=== PATIENT | female | born 1945 | race Caucasian/White ===

== ENCOUNTER → 2016-06-22 | Outpatient (CLI) | payer OTHER, BC ==
--- NOTE | 2016-06-22 14:50 | DX ---
Left Shoulder , 3 Views History: Pain without trauma. History of multiple myeloma. Comparison: Osseous survey October 01, 2015 Findings: The humeral head is well rounded and normally located. No fracture or dislocation is identi fied. Lytic lesions in the proximal humeral shaft and cortex are consistent with multiple myeloma. No pathological fracture is identified. The lytic lesions are present in the humeral head to a lesser e xtent. There are stable old healed rib fractures of the anterolateral left third, fourth and fifth ri bs. There is been a prior distal clavicle resection likely to alleviate rotator cuff impingement. Impression: 1. Consistent with diffuse myelomatous involvement of the left humeral shaft. 2. No pathologic fracture or joint malalignment identified.
== END ==
LOC: FLAB 14:18
PROVIDERS: ATTEND Internal Medicine Hematology & Oncology
DX: C90.00 Multiple myeloma not having achieved remission (principal); M25.512 Pain in left shoulder

== ENCOUNTER → 2016-08-23 | Outpatient (CLI) | payer OTHER, BC | LOC: FIMAGING 14:02 | PROVIDERS: ATTEND Internal Medicine Hematology & Oncology | DX: C90.02 Multiple myeloma in relapse (principal) ==

== ENCOUNTER → 2016-11-30 | Outpatient (CLI) | payer OTHER, BC | LOC: FIMAGING 14:19 | PROVIDERS: ATTEND Internal Medicine Hematology & Oncology | DX: C90.00 Multiple myeloma not having achieved remission (principal); M19.011 Primary osteoarthritis, right shoulder; M19.012 Primary osteoarthritis, left shoulder; M71.311 Other bursal cyst, right shoulder; M71.312 Other bursal cyst, left shoulder ==

== ENCOUNTER → 2017-01-20 | Outpatient (CLI) | payer OTHER, BC | LOC: FIMAGING 14:18 | PROVIDERS: ATTEND Nurse Practitioner | DX: C90.00 Multiple myeloma not having achieved remission (principal); R07.81 Pleurodynia; M54.9 Dorsalgia, unspecified; S22.42XS Multiple fractures of ribs, left side, sequela; M48.54XD Collapsed vertebra, not elsewhere classified, thoracic region, subsequent encounter for fracture with routine healing; M48.56XD Collapsed vertebra, not elsewhere classified, lumbar region, subsequent encounter for fracture with routine healing; R93.7 Abnormal findings on diagnostic imaging of other parts of musculoskeletal system ==

== ENCOUNTER → 2017-02-04 | Outpatient (CLI) | payer OTHER, BC | LOC: FIMAGING 06:46 | PROVIDERS: ATTEND Radiology Diagnostic Radiology | DX: M84.58XA Pathological fracture in neoplastic disease, other specified site, initial encounter for fracture (principal); C90.00 Multiple myeloma not having achieved remission ==

== ENCOUNTER 2017-02-09 09:33 | Day surgery (SDC) | payer OTHER, BC ==
[2017-02-09] MEDS ORDERED: NS 1,000 ML IV ONE (10:43)
[2017-02-09] MEDS ORDERED: DEXAMETHASONE 10 MG/ML VIAL IVP ONE (10:43)
[2017-02-09] MEDS ORDERED: ONDANSETRON 4 MG/2 ML VIAL ONE ×2 (11:08→12:04)
--- NOTE | 2017-02-09 11:12 | PDANEPAE ---
ANE Past Medical History - Cardiovascular History Hx Hypertension: Yes Hx Arrhythmias: No Hx Chest Pain: No Hx Coronary Artery / Peripheral Vascular Disease: No Hx CHF / Valvular Disease: No Hx Palpitations: No - Pulmonary History Hx COPD: No Hx Asthma/Reactive Airway Disease: No Hx Recent Upper Respiratory Infection: No Hx Oxygen in Use at Home: No Hx Sleep Apnea: No - Neurologic History Hx Cerebrovascular Accident: No Hx Seizures: No Hx Dementia: No - Endocrine History Hx Diabetes: No - Renal History Hx Renal Disorders: No - Liver History Hx Hepatic Disorders: No - Neurological & Psychiatric Hx Hx Neurological and Psychiatric Disorders: No - Cancer History Hx Cancer: Yes Cancer History Comment: 2004-multiple myeloma. Currently receiving chemotherapy - Congenital Disorder History Hx Congenital Disorders: No - GI History Hx Gastrointestinal Disorders: No - Chronic Pain History Chronic Pain: Yes (back pain) - Surgical History Prior Surgeries: C sections-1981, 1986. hysterectomy-1989. hand surgery-1974 ANE Review of Systems Review of Systems: - Exercise capacity METS (RN): 1 METS ANE Patient History - Allergies Allergies/Adverse Reactions: Penicillins Allergy (Severe, Verified 02/07/17 13:22) Hives - Home Medications Home Medications: Acyclovir 10/31/14 [Last Taken 10/16/15 08:00] Aspirin 81mg (OTC) 10/31/14 [Last Taken Unknown] CeleBREX 10/31/14 [Last Taken 10/16/15 08:00] Metoprolol Succinate 10/31/14 [Last Taken 10/16/15 08:00] Sertraline HCl 10/31/14 [Last Taken 10/16/15 08:00] Carotene 05/30/15 [Last Taken 10/16/15 08:00] Curcumin 05/30/15 [Last Taken 10/16/15 08:00] Imodium 2 mg (OTC) 05/30/15 [Last Taken 10/16/15 08:00] Liposomal Ubiquinol 05/30/15 [Last Taken 10/16/15 08:00] Lutein 05/30/15 [Last Taken 10/16/15 08:00] ALPHA LIPOIC ACID 10/17/15 [Last Taken 10/16/15 08:00] Advair 100/50 (RX) 10/17/15 [Last Taken Unknown] Albuterol 10/17/15 [Last Taken Unknown] Cod Liver Oil 10/17/15 [Last Taken Unknown] Hydrocodon-Acetaminophen 5-325 10/17/15 [Last Taken Unknown] Mv,Calcium,Min/Iron/Folic/Vitk [Multi For Her Tablet] 10/17/15 [Last Taken Unknown] Nystatin 10/17/15 [Last Taken Unknown] Prednisone 10/17/15 [Last Taken 10/16/15 08:00] Vit B Cmplx 3/FA/Vit C/Biotin 10/17/15 [Last Taken Unknown] - Smoking Hx Smoking Status: Current some day smoker Marijuana use: Yes - Family Anes Hx Family Hx Anesthesia Complications: None ANE Labs/Vital Signs - Vital Signs Height: 154.94 cm Weight: 50.802 kg ANE Physical Exam - Airway Mallampati Score: Class 2 - ASA Status ASA Status: III ANE Anesthesia Plan Anesthesia Plan: general endotracheal anesthesia
[2017-02-09] MEDS ORDERED: CLINDAMYCIN 600 MG/DEXTROSE 50 ML IV ONE (11:15)
[2017-02-09] MEDS ORDERED: MIDAZOLAM 2 MG/2 ML VIAL ONE (11:58)
[2017-02-09] MEDS ORDERED: PROPOFOL 200 MG/20 ML VIAL ONE (11:58)
[2017-02-09] MEDS ORDERED: fentaNYL 100 MCG/2 ML INJ ONE (11:58)
[2017-02-09] MEDS ORDERED: METOCLOPRAMIDE 10 MG/2 ML VIAL ONE (12:04)
[2017-02-09] MEDS ORDERED: ROCURONIUM 50 MG/5 ML VIAL ONE (12:04)
[2017-02-09] MEDS ORDERED: SUGAMMADEX SODIUM 200 MG/2 ML VIAL IVP ONE (13:12)
[2017-02-09] MEDS ORDERED: LR 500 ML IV PRN (13:27)
[2017-02-09] MEDS ORDERED: fentaNYL 100 MCG/2 ML INJ IVP PRN (13:27)
[2017-02-09] MEDS ORDERED: NALOXONE HCL 0.4 MG/ML INJ IVP PRN (13:27)
[2017-02-09] MEDS ORDERED: PROMETHAZINE HCL 25 MG/ML INJ IVP PRN (13:27)
--- NOTE | 2017-02-09 13:28 | POSTANESTH ---
Post Anesthetic Evaluation Cardiovascular Status: Similar to Pre-Op Cond Respiratory Status: Similar to Pre-op Cond. Level of Consciousness/Mental Status: Can Participate in Eval Pain Control: Adequate, Prn Tx Ordered Nausea/Vomiting Control: Adequate, Prn Tx Ordered Complications Possibly Related to Anesthesia: None Noted
[2017-02-09] MEDS ORDERED: BUPIVACAINE 0.5% 30 ML SDV ONE (14:06)
[2017-02-09 16:22] VITALS: TEMP 97.9
[2017-02-09 17:24] VITALS: BP 120/76; RESP 14; O2SAT 93
== END 2017-02-09 17:20 | disposition home or self-care (01) ==
LOC: FIMAGING 09:33
PROVIDERS: ATTEND Radiology Diagnostic Radiology
PROC: 0PU43JZ Supplement Thoracic Vertebra with Synthetic Substitute, Percutaneous Approach (ICD-10-PCS; principal; 2017-02-09 11:00)
DX: M84.58XA Pathological fracture in neoplastic disease, other specified site, initial encounter for fracture (principal); C90.00 Multiple myeloma not having achieved remission; I10 Essential (primary) hypertension; F12.90 Cannabis use, unspecified, uncomplicated
CPT/HCPCS: J1100; J2250; J2405; J2704; J2765; J3010

== ENCOUNTER → 2017-03-30 | Outpatient (CLI) | payer OTHER, BC | LOC: FIMAGING 13:47 | PROVIDERS: ATTEND Internal Medicine Hematology & Oncology | DX: M48.54XA Collapsed vertebra, not elsewhere classified, thoracic region, initial encounter for fracture (principal); M48.56XA Collapsed vertebra, not elsewhere classified, lumbar region, initial encounter for fracture; M89.8X8 Other specified disorders of bone, other site; C90.00 Multiple myeloma not having achieved remission ==

== ENCOUNTER → 2017-04-06 | Outpatient (CLI) | payer OTHER, BC | LOC: CIMAGING 08:11 | PROVIDERS: ATTEND Radiology Diagnostic Radiology | DX: M54.6 Pain in thoracic spine (principal); C90.00 Multiple myeloma not having achieved remission | CPT/HCPCS: 72128-PO ==

== ENCOUNTER → 2017-06-20 | Outpatient (CLI) | payer OTHER, BC | LOC: BHCLAF 13:15 | PROVIDERS: ATTEND Internal Medicine Cardiovascular Disease | DX: I35.9 Nonrheumatic aortic valve disorder, unspecified (principal); I10 Essential (primary) hypertension; R00.2 Palpitations | CPT/HCPCS: 93306-PO ==

== ENCOUNTER → 2017-06-23 | Outpatient (CLI) | payer OTHER, BC | LOC: FIMAGING 10:21 → EDSTATUS 10:22 | PROVIDERS: ATTEND Internal Medicine Hematology & Oncology | DX: Z03.89 Encounter for observation for other suspected diseases and conditions ruled out (principal); Z95.828 Presence of other vascular implants and grafts ==